=== PATIENT | male | born 1950 | race Caucasian/White ===

== ENCOUNTER → 2019-12-07 08:22 | Outpatient (CLI) | payer MEDICARE, OTHER ==
[2019-11-15 11:22] VITALS: BMI 26.3
[~2019-12-07 08:22] MED LIST: FLOMAX0.4 MG PO; LIPITOR10 MG PO
== END | disposition home or self-care (01) ==
LOC: D.MRI 08:22
PROVIDERS: ATTEND Surgery
DX: C78.7 Secondary malignant neoplasm of liver and intrahepatic bile duct (principal)

== ENCOUNTER 2020-03-08 16:30 | Inpatient (IN) | payer MEDICARE, OTHER ==
[~2020-03-08] VITALS: Ht 182.9 cm; Wt 90.7 kg
[2020-03-11] MEDS ORDERED: PROSCAR5 MG PO (15:02)
[2020-03-13] VITALS (12 sets, daily range): BP systolic 107–136; BP diastolic 54–77; BMI 25.0
[2020-03-13 09:05] LABS: BASOPHILS 0.7 % (0-2); EOSINOPHILS 2.7 % (0-7); HEMOGLOBIN 14.4 g/dL (13.5-17.5); IMMATURE GRANULOCYTES 0.2 % (0-5); LYMPHOCYTES 21.9 % (15-50); MCHC 32.7 g/dL (31.0-37.0); MCV 88.7 fL (80.0-100.0); MEAN PLATELET VOLUME 9.1 fL (7.4-10.4); MONOCYTES 7.5 % (2-11); PLATELET COUNT 193 10x3/uL (130-400); RBC 4.96 10x6/uL (4.20-6.10); RDW 15.1 % (11.5-14.5); WBC 5.6 10x3/uL (4.8-10.8)
[2020-03-13 09:11] LABS: APTT 31.2 SECONDS (22.8-39.4); INR 1.06 (0.85-1.17); PROTIME 13.8 SECONDS (11.6-15.0)
--- NOTE | 2020-03-13 12:49 | NUR ---
1249 PATIENT AROUSABLE, OPA DISCONTINUED. MAINTAINING PATENT AIRWAY
--- NOTE | 2020-03-13 19:45 | NUR ---
ALERT AND ORIENTED X4. RESP EVEN AND NONLABORED. DRSG NOTED TO ABD HAS DRAINAGE AND IS MARKED AT THIS TIME. EFRAIN NOTED TO RT AND LT ABD WITH BLOODY DRAINAGE IN BULB WHICH IS COMPRESSED. RATES PAIN IN ABD 2. LR @ 75 MLHR INFUSING IN RT HAND WITH AUTO DEALER MORPHINE. SALINE LOCK NOTED TO LT HAND. CHAHAL CATH PATENT AND DRAINING DARK YELLOW URINE. SCDS IN USE BILAT. BED ALARM ON FOR PT SAFETY. SR ELEVATED X2. CL IN REACH.
--- NOTE | 2020-03-13 22:50 | NUR ---
AMBULATED IN HALLWAY AND BACK TO ROOM. PT TOLERATED WELL. CL IN REACH.
[2020-03-14] VITALS (7 sets, daily range): BP systolic 94–124; BP diastolic 47–82; BMI 27.1
--- NOTE | 2020-03-14 04:10 | NUR ---
HAS RESTED WELL. NO DISTRESS. CL IN REACH.
[2020-03-14 06:33] LABS: BASOPHILS 0.1 % (0-2); EOSINOPHILS 0 % (0-7); HEMATOCRIT 38.3 % (42.0-54.0); HEMOGLOBIN 12.5 g/dL (13.5-17.5); IMMATURE GRANULOCYTES 0.1 % (0-5); LYMPHOCYTES 9.4 % (15-50); MCH 28.8 pg (26.0-34.0); MCHC 32.6 g/dL (31.0-37.0); MCV 88.2 fL (80.0-100.0); MEAN PLATELET VOLUME 9.2 fL (7.4-10.4); MONOCYTES 7.8 % (2-11); NEUTROPHILS 82.6 % (40-80); PLATELET COUNT 174 10x3/uL (130-400); RBC 4.34 10x6/uL (4.20-6.10)
[2020-03-14 06:51] LABS: WBC 10.4 10x3/uL (4.8-10.8)
[2020-03-14 07:17] LABS: ALBUMIN 3.3 g/dL (3.4-5.0); ALKALINE PHOSPHATASE 49 U/L (30-120); ALT (SGPT) 26 U/L (10-68); CALC OSMOLALITY 274 mosm/kg (275-300); CALCIUM 8.1 mg/dL (8.5-10.1); CHLORIDE - SERUM 103 mmol/L (98-107); GLUCOSE 101 mg/dL (74-106); POTASSIUM - SERUM 3.9 mmol/L (3.5-5.1); SODIUM 137 mmol/L (136-145); UREA NITROGEN 14 mg/dL (7-18); eGFR NON AFRICAN AMERICAN 79 mL/min (90-120)
--- NOTE | 2020-03-14 07:42 | NUR ---
HE IS SETTING UP IN THE CHAIR FOR BREAKFAST. HE HAS BILATERAL EFRAIN'S WITH A MIDLINE INCISION - CLEAN AND DRY INTACT. HAS A CHAHAL. THE CALL LIGHT IS WITHIN REACH.
--- NOTE | 2020-03-14 08:21 | OP ---
PATIENT NAME: MANSOOR MACEDO MEDICAL RECORD: [id number] :54 LOCATION:D.MS [id number] ADMISSION DATE:03/13/20 SURGEON: ILYA CHARLES MD DATE OF OPERATION: 03/13/2020 PREOPERATIVE DIAGNOSIS: Malignant tumor of the sigmoid colon. POSTOPERATIVE DIAGNOSIS: Malignant tumor of the sigmoid colon. PROCEDURE PERFORMED: Laparoscopic mobilization of splenic flexure, hand-assisted laparoscopic sigmoid colectomy. ANESTHESIA: General. COMPLICATIONS: None. SPECIMEN: Sigmoid colon. ESTIMATED BLOOD LOSS: 75 mL. SURGEON: Ilya Charles MD WOUND CLASSIFICATION: Case was contaminated. OPERATIVE COURSE: After consent was obtained, the patient was taken to the operating room and placed in supine position on the operating table. Next, general anesthesia was given via endotracheal intubation. Adequate anesthesia was given. A time-out was performed to confirm the correct patient and procedure. The abdomen was prepped and draped in typical sterile fashion and included an Ioban dressing. Local anesthetic was administered just below the umbilicus. A skin incision was made with an 11-blade scalpel. Using a 5 mm bladeless optical trocar, the abdomen was entered under direct laparoscopic vision. Adequate pneumoperitoneum was achieved. The abdominal cavity was inspected. No evidence of bile injury. No evidence of bleeding. The 12 mm trocars were then placed in the right lower quadrant, a 5 mm trocar into the lower midline, and a 5 mm trocar in the left lower quadrant. The sigmoid colon was grasped and retracted superiorly, exposing the vascular pedicle, which was dissected using the Harmonic scalpel. Once the vascular pedicle was circumferentially dissected, it was transected using the JONH stapler with white load melissa. Next, the white line of Toldt was taken using the Harmonic scalpel. Sigmoid colon was dissected off the pelvic side wall. Using the Harmonic scalpel, we began following along the white line of Toldt. The descending colon was mobilized up to and including the splenic flexure. Once this was complete, the two midline trocars were removed. A skin incision was made connecting the 2 incisions from just below the umbilicus to just above the pubic symphysis. Dissection continued using electrocautery. Peritoneum was incised using electrocautery and the remaining portion of the incision was opened under direct vision with electrocautery. An Parker wound retractor was placed. The sigmoid colon was extracorporealized. The left and right ureters were identified and labeled with vessel loops. The tumor was palpable within the distal sigmoid colon and proximal rectum. The proximal sigmoid colon was transected using the JONH stapler. Any remaining mesentery was taken with Harmonic scalpel. A second final stapler was then used to transect the rectum several centimeters below the palpable mass. The specimen was passed off the field and sent for permanent pathology. The rectum was mobilized posteriorly in OPERATIVE REPORT [id number] MANSOOR MACEDO the presacral fascia avascular space. The peritoneal reflection was taken down with electrocautery, allowing for full mobilization of the rectum. The descending colon reached the rectal stump without tension. The staple line was opened. A 25 mm anvil was placed into the colotomy. The rectal dilators were then placed through the rectum. The 25 mm EEA stapler was passed through the rectum into the anvil. The spike was deployed just posterior to the staple line. It was connected to the anvil and the mesentery was facing the posterior direction. The EEA stapling device was closed and held for 30 seconds. The stapling device was then deployed and held for 20 seconds. The EEA stapler was then removed with 2 intact donuts and sent for permanent pathology. Next, a bulb syringe was placed in the rectum. The anastomosis was submerged underwater. There was no leak detected. At this time, all members of the surgical team changed gown and gloves and returned scrubbed back into the case. The staple line was imbricated using 3-0 Vicryl suture and Evicel tissue sealant. Two EFRAIN drains were placed into the pelvis through the right and left lower quadrant trocar sites. Chris was applied in the presacral space. The fascia was then closed using a separate sterile closing table with a #1 looped PDS. Skin was closed with melissa. At the end of the case, all needle and instrument counts were correct. No complications occurred. The patient was extubated and transferred to the PACU in stable condition. NTS:[id number] Voice Confirmation ID: [id number] DOCUMENT ID: [id number] ILYA CHARLES MD at 0821 CC: [id number] DICTATION DATE: 03/13/20 1239 SHEET METAL SUPERINTENDENT: 03/13/20 2316 ADM IN [facility] [address] [id number]
--- NOTE | 2020-03-14 11:45 | NUR ---
HE WALKED WITH PT.
--- NOTE | 2020-03-14 20:00 | NUR ---
PT SITTING UP IN BED WITHOUT DISTRESS, AOX4. MIDLINE INCISION CDI, BILAT EFRAIN DRAIN BULBS COMPRESSED. IV RIGHT HAND INFUSING LR @ 75. MORPHINE SUPERVISOR ORCHARD FOR PAIN CONTROL. PT AMBULATING TO BATHROOM TO VOID. STATES HE IS PASSING GAS. ABOUT TO AMBULATED AROUND HALLWAY. DENIES OTHER NEEDS. CL IN REACH, WILL CTM
[2020-03-15] VITALS: BP 117/62
[2020-03-15 04:00] VITALS: BP 124/74
[2020-03-15 05:19] LABS: BASOPHILS 0.3 % (0-2); EOSINOPHILS 0.6 % (0-7); HEMATOCRIT 38.2 % (42.0-54.0); HEMOGLOBIN 12.1 g/dL (13.5-17.5); IMMATURE GRANULOCYTES 0.2 % (0-5); LYMPHOCYTES 13.8 % (15-50); MCH 28.2 pg (26.0-34.0); MCHC 31.7 g/dL (31.0-37.0); MEAN PLATELET VOLUME 9.7 fL (7.4-10.4); MONOCYTES 8.7 % (2-11); NEUTROPHILS 76.4 % (40-80); PLATELET COUNT 185 10x3/uL (130-400); RBC 4.29 10x6/uL (4.20-6.10); RDW 15.4 % (11.5-14.5)
[2020-03-15 05:23] LABS: WBC 6.7 10x3/uL (4.8-10.8)
[2020-03-15 06:08] LABS: ANION GAP 9.8 mmol/L (8-16); CALCIUM 8.2 mg/dL (8.5-10.1); CREATININE - SERUM 1.1 mg/dL (0.6-1.3); POTASSIUM - SERUM 3.8 mmol/L (3.5-5.1)
--- NOTE | 2020-03-15 07:24 | NUR ---
PT UP AT BEDSIDE WALKING AROUND, ALERT AND ORIENTED. IV LOCATED TO RIGHT HAND RUNNING LR @ 75ML/HR, MORPHINE DOCUMENT CONTROL ASSOCIATE PRESENT. 2ND IV LOCATED TO LEFT HAND CURRENTLY SL. 2 EFRAIN DRAINS PRESENT. DENIES CURRENT NEEDS, WILL CONT TO MONITOR.
[2020-03-15 10:29] VITALS: BP 147/77
[2020-03-15 13:47] VITALS: BP 129/73
[2020-03-15 18:03] VITALS: BP 139/64
[2020-03-15 20:00] VITALS: BP 134/66
[2020-03-16 00:01] VITALS: BP 128/70
[2020-03-16 05:16] VITALS: BP 124/98
--- NOTE | 2020-03-16 05:38 | NUR ---
PT C/O ABDOMINAL PAIN 03/06. GAVE 1 TAB NORCO-5 PO. PT HAD LOOSE GREEN BM. EMPTIED EFRAIN DRAINS 3 TIMES - CHARTED IN I&O FLOW-SHEET. NO OTHER NEEDS. WILL CONTINUE TO MONITOR.
[2020-03-16 08:32] LABS: CALC OSMOLALITY 273 mosm/kg (275-300); CALCIUM 8.1 mg/dL (8.5-10.1); CARBON DIOXIDE 27.5 mmol/L (21.0-32.0); CHLORIDE - SERUM 102 mmol/L (98-107); GLUCOSE 88 mg/dL (74-106); POTASSIUM - SERUM 3.7 mmol/L (3.5-5.1); SODIUM 138 mmol/L (136-145); UREA NITROGEN 10 mg/dL (7-18)
[2020-03-16 08:33] LABS: CREATININE - SERUM 0.8 mg/dL (0.6-1.3); eGFR NON AFRICAN AMERICAN > 90 mL/min (90-120)
[2020-03-16 10:39] VITALS: BP 148/89
[2020-03-16 11:06] VITALS: Ht 182.9 cm; Wt 90.7 kg
[2020-03-16 15:19] VITALS: BP 138/77
[2020-03-16 18:37] VITALS: BP 130/79
[2020-03-16 20:21] VITALS: BP 128/69
[2020-03-17 00:25] VITALS: BP 134/67
[2020-03-17 04:30] VITALS: BP 112/76
[2020-03-17 06:05] LABS: HEMATOCRIT 41.6 % (42.0-54.0); HEMOGLOBIN 13.5 g/dL (13.5-17.5); LYMPHOCYTES 11.1 % (15-50); MCH 28.5 pg (26.0-34.0); MCHC 32.5 g/dL (31.0-37.0); MCV 87.8 fL (80.0-100.0); MEAN PLATELET VOLUME 9.2 fL (7.4-10.4); NEUTROPHILS 79.7 % (40-80); PLATELET COUNT 210 10x3/uL (130-400); RBC 4.74 10x6/uL (4.20-6.10); RDW 14.6 % (11.5-14.5); WBC 6.3 10x3/uL (4.8-10.8)
[2020-03-17 06:22] LABS: CALC OSMOLALITY 271 mosm/kg (275-300); CALCIUM 8.3 mg/dL (8.5-10.1); CARBON DIOXIDE 27.8 mmol/L (21.0-32.0); CHLORIDE - SERUM 102 mmol/L (98-107); CREATININE - SERUM 0.9 mg/dL (0.6-1.3); GLUCOSE 90 mg/dL (74-106); POTASSIUM - SERUM 3.8 mmol/L (3.5-5.1); SODIUM 136 mmol/L (136-145); UREA NITROGEN 12 mg/dL (7-18); eGFR NON AFRICAN AMERICAN 89 mL/min (90-120)
[2020-03-17] MEDS ORDERED: HYDROCODON-ACE1 EAC7 PO (07:58)
[2020-03-17] MEDS ORDERED: MIRALAX17 GM PO (07:58)
[2020-03-17 08:44] VITALS: BP 129/75
--- NOTE | 2020-03-17 10:40 | NUR ---
IV DISCONTINUED AND VERBALIZED UNDERSTANDING OF DISCHARGE INSTRUCTIONS. PATIENT ABLE TO DEMONSTRATE PROPER TECHNIQUE WITH EFRAIN CARE. STABLE AT TIME OF DEPARURE.
--- NOTE | 2020-03-17 22:56 | MORECARE ---
CASE MANAGEMENT DISCHARGE SUMMARY PATIENT: MANSOOR MACEDO UNIT: [id number] ADM DATE: 03/13/20 AGE: 69 : 52 SEX: M ROOM/BED: D.2203 AUTHOR: MARTHA,DOC PHYSICIAN: REFERRING PHYSICIAN: ILYA CHARLES MD DATE OF SERVICE: 03/17/20 Discharge Plan Patient Name: MANSOOR MACEDO Facility: [facility]:[place] : 1950 Planned Disposition: Home Anticipated Discharge Date: Discharge Date: 03/17/2020 Expected LOS: Initial Reviewer: [email or web address] Initial Review Date: 03/17/2020 Generated: 03/17/20 11:55 pm Comments DCP- Discharge Planning Updated by [email or web address]: Sophie Gleason on 03/17/20 9:[address] Patient Name: MANSOOR MACEDO Admission Status: Elective Accout number: [id number] Admission Date: 03-13-2020 : 1950 Admission Diagnosis:UNSP INTESTNL OBST, UNSP TO PARTIAL VERSUS COMPLETE Attending: ILYA CHARLES Current LOS: 4 Anticipated DC Date: Planned Disposition: Home Primary Insurance: MEDICARE A & B Discharge Planning Comments: CM met with patient to complete initial dc planning assessment. CM educated patient on the CM role and verbal consent given by patient to complete assessment. Patient lives at home with family. Patient is independent. At discharge patient plans to return home and feels this is a safe discharge. CM discussed availability of home health, rehab services, and medical equipment. Patient will have family to transport home. Patient denied known discharge needs at this time. CM will continue to follow and will assist as needed with dc plans/needs. Home Extension Agent: Sophie Gleason DCPIA - Discharge Planning Initial Assessment Updated by [email or web address]: Sophie Gleason on 03/17/20 10:55 pm * Is the patient Alert and Oriented? Yes * How many steps to enter\exit or inside your home? * PCP [facility] * Pharmacy [facility] - IN [place] * Preadmission Environment Home with Family * ADLs Independent * Other Equipment MULTIPLE ITEMS * List name and contact numbers for known caregivers / representatives who currently or will assist patient after discharge: JUANIS MACEDO - - [phone], * Verbal permission to speak to the caregivers and representatives has been obtained from the patient. Yes * Community resources currently utilized None * Additional services required to return to the preadmission environment? No * Can the patient safely return to the preadmission environment? Yes * Has this patient been hospitalized within the prior 30 days at any hospital? No Patient Name: MANSOOR MACEDO Page [id number] at 2256 All edits/amendments must be made on the electronic document DICTATION DATE: 03/17/202254 CORN CROP SUPERVISOR: ALINE 03/17/202254 RPT#: [id number] DC DATE:03/17/20 STATUS: DIS IN [facility] [address] [place] [address] END OF REPORT
--- NOTE | 2020-03-17 23:04 | MORECARE ---
CASE MANAGEMENT DISCHARGE SUMMARY PATIENT: MANSOOR MACEDO UNIT: [id number] ADM DATE: 03/13/20 AGE: 69 : 52 SEX: M ROOM/BED: D.2203 AUTHOR: MARTHA,DOC PHYSICIAN: REFERRING PHYSICIAN: ILYA CHARLES MD DATE OF SERVICE: 03/17/20 Discharge Plan Patient Name: MANSOOR MACEDO Facility: [facility]:[place] : 1950 Planned Disposition: Home Anticipated Discharge Date: Discharge Date: 03/17/2020 Expected LOS: Initial Reviewer: [email or web address] Initial Review Date: 03/17/2020 Generated: 03/18/20 12:03 am Comments DCP- Discharge Planning Updated by [email or web address]: Sophie Gleason on 03/17/20 9:[address] Patient Name: MANSOOR MACEDO Admission Status: Elective Accout number: [id number] Admission Date: 03-13-2020 : 1950 Admission Diagnosis:UNSP INTESTNL OBST, UNSP TO PARTIAL VERSUS COMPLETE Attending: ILYA CHARLES Current LOS: 4 Anticipated DC Date: Planned Disposition: Home Primary Insurance: MEDICARE A & B Discharge Planning Comments: CM met with patient to complete initial dc planning assessment. CM educated patient on the CM role and verbal consent given by patient to complete assessment. Patient lives at home with family. Patient is independent. At discharge patient plans to return home and feels this is a safe discharge. CM discussed availability of home health, rehab services, and medical equipment. Patient will have family to transport home. Patient denied known discharge needs at this time. D/C IMM SIGNED 03/17/20 @ 1012. CM will continue to follow and will assist as needed with dc plans/needs. Cd Storage And Materials Make Up Helper: Sophie Gleason DCPIA - Discharge Planning Initial Assessment Updated by [email or web address]: Sophie Gleason on 03/17/20 10:55 pm * Is the patient Alert and Oriented? Yes * How many steps to enter\exit or inside your home? * PCP [facility] * Pharmacy [facility] * Preadmission Environment Home with Family * ADLs Independent * Other Equipment MULTIPLE ITEMS * List name and contact numbers for known caregivers / representatives who currently or will assist patient after discharge: JUANIS MACEDO - - [phone], * Verbal permission to speak to the caregivers and representatives has been obtained from the patient. Yes * Community resources currently utilized None * Additional services required to return to the preadmission environment? No * Can the patient safely return to the preadmission environment? Yes * Has this patient been hospitalized within the prior 30 days at any hospital? No Coverage Notice Reviewer: [email or web address] Christopher Gleason Notice Issued Date-Time: 03/17/2020 10:12 Notice Type: IM Discharge Notice Notice Delivered To: Patient Relationship to Patient: Self Chrome Plater Name: Delivery Method: HAND - Hand Delivered Rosa M Days: Prior Verbal Notification: Recipient Understood Notice: Yes Recipient Signature: Yes Med Rec Note Co-signed by Attending: Coverage Notice Comment: Last DP export: 03/17/20 9:56 p Patient Name: MANSOOR MACEDO Page [id number] at 2304 All edits/amendments must be made on the electronic document DICTATION DATE: 03/17/202302 WIND PROJECT MANAGER: ALINE 03/17/202302 RPT#: [id number] DC DATE:03/17/20 STATUS: DIS IN [facility] [address] [place] [address] END OF REPORT
== END 2020-03-17 10:40 | disposition home or self-care (01) | DRG 331 ==
LOC: D.MS 03-13 08:32 → D.SDCHOLD 03-13 08:32 → D.MS 03-13 12:56
PROVIDERS: Anesthesiology; ADMIT Surgery; ATTEND Surgery
PROC: 0DTN0ZZ Resection of Sigmoid Colon, Open Approach (ICD-10-PCS; principal; 2020-03-13 10:45)
DX: C18.7 Malignant neoplasm of sigmoid colon (principal)